=== PATIENT | male | born 1960 | race Caucasian/White ===

== ENCOUNTER 2021-02-08 13:40 | Emergency (ER) | payer OTHER ==
[~2021-02-08] VITALS: Wt 83.9 kg
== END 2021-02-08 17:44 | disposition home or self-care (01) ==
LOC: ED 13:40
DX: S16.1XXA Strain of muscle, fascia and tendon at neck level, initial encounter (principal); S39.012A Strain of muscle, fascia and tendon of lower back, initial encounter; Z88.8 Allergy status to other drugs, medicaments and biological substances; V89.2XXA Person injured in unspecified motor-vehicle accident, traffic, initial encounter; Y93.89 Activity, other specified; Y92.89 Other specified places as the place of occurrence of the external cause; Y99.8 Other external cause status

== ENCOUNTER → 2021-04-24 | Outpatient (CLI) | payer OTHER | END | disposition home or self-care (01) | LOC: LAB 08:25 | PROVIDERS: ATTEND Urology | DX: C61 Malignant neoplasm of prostate (principal); N52.9 Male erectile dysfunction, unspecified ==

== ENCOUNTER 2023-05-16 09:47 | Emergency (ER) | payer BC, OTHER ==
[~2023-05-16] VITALS: Ht 180.3 cm; Wt 81.6 kg
[~2023-05-16 09:47] MED LIST: ASPIRIN ADULT L81 M1 PO; ATORVASTATIN CA40 M1 PO; HEPARIN 2525000 UNI1 IV; METOPROLOL SUCC50 M1 PO; NITRO-BID1 GM T
== END 2023-05-16 16:02 | disposition left against medical advice (07) ==
LOC: ED 09:47
DX: S60.012A Contusion of left thumb without damage to nail, initial encounter (principal); Z88.8 Allergy status to other drugs, medicaments and biological substances; Z53.21 Procedure and treatment not carried out due to patient leaving prior to being seen by health care provider; X58.XXXA Exposure to other specified factors, initial encounter; Y93.89 Activity, other specified; Y92.89 Other specified places as the place of occurrence of the external cause; Y99.8 Other external cause status